=== PATIENT | female | born 1975 | race Two or more races ===

== ENCOUNTER 2017-10-21 18:28 | Emergency (ER) | payer OTHER ==
[~2017-10-21] VITALS: Ht 162.6 cm; Wt 49.9 kg
[2017-10-21] MEDS ORDERED: TDAP [DIPH/PERTUSSIS/TET] 0.5 ML VIAL IM ONE (19:40)
[2017-10-21] MEDS: TDAP [DIPH/PERTUSSIS/TET] 0.5 ML VIAL IM ONE (19:44)
[2017-10-21] MEDS: IBUPROFEN 600 MG TABLET PO ONE (20:15)
[2017-10-21 21:57] VITALS: BP 128/68
== END 2017-10-21 21:00 | disposition home or self-care (01) ==
LOC: ER 18:33
DX: S52.125A Nondisplaced fracture of head of left radius, initial encounter for closed fracture (principal); S80.211A Abrasion, right knee, initial encounter; S80.212A Abrasion, left knee, initial encounter; W10.9XXA Fall (on) (from) unspecified stairs and steps, initial encounter; Y93.89 Activity, other specified; Y92.89 Other specified places as the place of occurrence of the external cause; Y99.8 Other external cause status
CPT/HCPCS: 73080; 90715; 99284; A4606; Z7610